=== PATIENT | female | born 1975 | race African-American/Black ===

== ENCOUNTER 2019-09-17 18:21 | Emergency (ER) | payer MEDICAID ==
--- NOTE | 2019-09-17 19:20 | NUR ---
called for triage. no answer
--- NOTE | 2019-09-17 19:27 | NUR ---
CALLED FOR TRIAGE . NO ANSWER
--- NOTE | 2019-09-17 19:30 | NUR ---
patient called for triage. LWBS
== END 2019-09-17 19:20 | disposition left against medical advice (07) ==
LOC: SED 18:21
DX: I10 Essential (primary) hypertension (principal); Z53.21 Procedure and treatment not carried out due to patient leaving prior to being seen by health care provider

== ENCOUNTER 2021-01-24 10:46 | Emergency (ER) | payer MEDICAID ==
[~2021-01-24] VITALS: Ht 157.5 cm; Wt 58.5 kg
[2021-01-24 10:46] VITALS: BP_SYST 132
--- NOTE | 2021-01-24 10:46 | NUR ---
BROUGHT BACK TO BED #7 AND TRIAGED. REPORT GIVEN TO GREGG
--- NOTE | 2021-01-24 10:50 | NUR ---
Pt came to ER for L chest pain, states she had a heart attack November of 2019. Pt is anxious this could be another ME, currently resting in [facility], awaiting MD, EKG completed
--- NOTE | 2021-01-24 11:10 | NUR ---
DR CARBAJAL AT BEDSIDE FOR EVALUATION
[2021-01-24 11:27] LABS: BASOPHILS % (AUTO) 0.7 % (0.0-2.0); EOSINOPHILS # (AUTO) 0.1 K/uL (0.0-0.4); EOSINOPHILS % (AUTO) 1.3 % (0.0-4.0); HEMATOCRIT 36.8 % (36-48); HEMOGLOBIN 12.1 g/dL (12.0-16.0); LYMPHOCYTES % (AUTO) 28.1 % (20.5-51.5); MEAN CORPUSCULAR HEMOGLOBIN 27 pg (27-31); MEAN CORPUSCULAR HGB CONC 33 % (32-36); MEAN CORPUSCULAR VOLUME 83 fL (79.0-98.0); MONOCYTES # (AUTO) 0.5 K/uL (0.0-1.0); MONOCYTES % (AUTO) 7.5 % (1.7-9.3); NEUTROPHILS # (AUTO) 4.4 K/uL (1.8-7.7); NEUTROPHILS % (AUTO) 62.4 % (40.0-70.0); PLATELET COUNT (AUTO) 251 K/uL (130-430); RED BLOOD CELL COUNT(AUTO) 4.45 MIL/uL (4.2-6.2); RED CELL DISTRIBUTION WIDTH 17.8 % (9.0-15.0)
[2021-01-24] MEDS ORDERED: ASPIRIN 81 MG TAB.CHEW PO ONE (11:30)
--- NOTE | 2021-01-24 11:37 | NUR ---
Pt resting in [facility] at this time
[2021-01-24 11:41] LABS: ANION GAP 8 (5-15); CALCIUM 8.7 mg/dL (8.4-11.0); CHLORIDE 105 mmol/L (98-107); CREATININE 0.87 mg/dL (0.55-1.30); GLUCOSE 104 mg/dL (70-99); POTASSIUM 3.2 mmol/L (3.5-5.1); SODIUM SERUM 140 mmol/L (136-145); UREA NITROGEN, BLOOD 15 mg/dL (8-21)
[2021-01-24 11:48] LABS: GFR AFRICAN AMERICAN 91 mL/min (>90)
[2021-01-24 11:50] LABS: ALANINE AMINOTRANSFERASE 16 U/L (12-78); ASPARTATE AMINOTRANSFERASE 17 U/L (10-37); LIPASE 150 U/L (73-393)
--- NOTE | 2021-01-24 12:08 | NUR ---
calm, alert, resp unlabored, skin warm and dry. communicates clearly in full complete sentneces, SR ON MONITOR NO ECTOPY, NORMOTENSIVE
--- NOTE | 2021-01-24 12:40 | NUR ---
Pt sitting upright in [facility] at this time, no complaints
[2021-01-24] MEDS ORDERED: POTASSIUM CHLORIDE 20 MEQ TAB.PRT.SR PO ONE (12:45)
[2021-01-24] MEDS ORDERED: DIAZEPAM 5 MG TABLET (VALIUM) PO ONE (13:00)
[2021-01-24] MEDS ORDERED: DIAZ5TAB PO ×3 (13:07→13:30)
[2021-01-24 13:44] VITALS: BP_SYST 141
--- NOTE | 2021-01-24 13:44 | NUR ---
Patient given written and verbal discharge instructions and verbalizes understanding. ER MD discussed with patient the results and treatment provided. Patient in stable condition. ID arm band removed. IV catheter removed intact and dressing applied, no active bleeding. Rx of Valium given. Patient educated on pain management and to follow up with PMD. Pain Scale 0/10. Opportunity for questions provided and answered. Medication side effect fact sheet provided.
== END 2021-01-24 13:44 | disposition home or self-care (01) ==
LOC: SED 10:46
DX: R07.89 Other chest pain (principal); E87.6 Hypokalemia; I10 Essential (primary) hypertension; Z79.899 Other long term (current) drug therapy
CPT/HCPCS: 36415; 71045; 80053; 83690; 84484; 85025; 93005; 99285

== ENCOUNTER 2021-09-11 12:23 | Emergency (ER) | payer MEDICAID ==
[~2021-09-11] VITALS: Ht 157.5 cm; Wt 59.0 kg
[2021-09-11 12:23] VITALS: BP_SYST 140
[~2021-09-11 12:23] MED LIST: DIAZ5TAB PO
--- NOTE | 2021-09-11 12:23 | NUR ---
BROUGHT BACK TO BED #8 AND TRIAGED. REPORT GIVEN TO LAURA
--- NOTE | 2021-09-11 13:24 | NUR ---
BRADLEY Murcia at bedside examining patient.
[2021-09-11 13:39] VITALS: BP_SYST 144
--- NOTE | 2021-09-11 13:41 | NUR ---
Patient given written and verbal discharge instructions and verbalizes understanding. ER MD discussed with patient the results and treatment provided. Patient in stable condition. ID arm band removed. Patient educated on pain management and to follow up with PMD. Pain Scale 0. Opportunity for questions provided and answered. Medication side effect fact sheet provided.
== END 2021-09-11 13:39 | disposition home or self-care (01) ==
LOC: SED 12:23
DX: I10 Essential (primary) hypertension (principal); Z91.14 Patient's other noncompliance with medication regimen
CPT/HCPCS: 99281

== ENCOUNTER 2021-11-04 06:28 | Emergency (ER) | payer MEDICAID ==
[~2021-11-04] VITALS: Ht 157.5 cm; Wt 59.0 kg
[2021-11-04 06:48] VITALS: BP_SYST 133
[2021-11-04 07:26] LABS: CALCIUM 8.8 mg/dL (8.4-11.0); CREATININE 0.85 mg/dL (0.55-1.30)
[2021-11-04 07:30] LABS: BASOPHILS # (AUTO) 0.1 K/uL (0.0-0.2); EOSINOPHILS # (AUTO) 0.1 K/uL (0.0-0.4); EOSINOPHILS % (AUTO) 1.1 % (0.0-4.0); HEMATOCRIT 34.5 % (36-48); HEMOGLOBIN 11.3 g/dL (12.0-16.0); LYMPHOCYTES # (AUTO) 1.4 K/uL (1.0-5.5); MEAN CORPUSCULAR HEMOGLOBIN 25 pg (27-31); MEAN CORPUSCULAR HGB CONC 33 % (32-36); MEAN CORPUSCULAR VOLUME 77 fL (79.0-98.0); MONOCYTES # (AUTO) 0.4 K/uL (0.0-1.0); MONOCYTES % (AUTO) 6.3 % (1.7-9.3); NEUTROPHILS # (AUTO) 3.8 K/uL (1.8-7.7); NEUTROPHILS % (AUTO) 66.6 % (40.0-70.0); PLATELET COUNT (AUTO) 297 K/uL (130-430); RED BLOOD CELL COUNT(AUTO) 4.45 MIL/uL (4.2-6.2); WHITE BLOOD COUNT (AUTO) 5.7 K/uL (4.8-10.8)
[2021-11-04 07:34] LABS: ALBUMIN 3.7 g/dL (3.4-4.8); TOTAL BILIRUBIN 0.7 mg/dL (0.0-1.0)
[2021-11-04] MEDS ORDERED: IBUPROFEN 800 MG TABLET PO ONE (08:00)
[2021-11-04] MEDS ORDERED: HYDROcodone/ACETAMIN 10-325 MG TAB PO ONE (08:00)
[2021-11-04] MEDS ORDERED: IBUP-1969 PO (08:02)
[2021-11-04] MEDS ORDERED: HYDR-3917 PO (08:02)
[2021-11-04 09:00] VITALS: BP_SYST 118
== END 2021-11-04 09:00 | disposition home or self-care (01) ==
LOC: SED 06:28
DX: G62.9 Polyneuropathy, unspecified (principal); I10 Essential (primary) hypertension
CPT/HCPCS: 36415; 70450-TC; 71045; 76376; 80053; 84484; 85025; 93005; 99285

== ENCOUNTER 2022-12-16 07:20 | Inpatient (IN) | payer MEDICAID ==
[~2022-12-16] VITALS: Ht 157.5 cm; Wt 56.7 kg
[~2022-12-16 07:20] MED LIST changes: +HYDR-3917 PO; +IBUP-1969 PO
[2022-12-16 07:24] VITALS: BP_SYST 107
[2022-12-16] MEDS ORDERED: KETOROLAC TROMETHAMINE 60 MG/2 ML VIAL IM ONE (07:45)
[2022-12-16 07:57] LABS: BILIRUBIN,URINE NEGATIVE (NEGATIVE); BLOOD, URINE NEGATIVE (NEGATIVE); COLOR,URINE YELLOW (YELLOW); GLUCOSE,URINE NEGATIVE (NEGATIVE); KETONES,URINE NEGATIVE (NEGATIVE); LEUKOCYTE ESTERASE ,URINE NEGATIVE (NEGATIVE); NITRITE, URINE NEGATIVE (NEGATIVE); PROTEIN URINE NEGATIVE (NEGATIVE); UROBILINOGEN,URINE 0.2 (0.2-1.0)
[2022-12-16 08:02] LABS: BASOPHILS # (AUTO) 0.1 K/uL (0.0-0.2); EOSINOPHILS # (AUTO) 0.2 K/uL (0.0-0.4); EOSINOPHILS % (AUTO) 1.9 % (0.0-4.0); HEMATOCRIT 36.8 % (36-48); LYMPHOCYTES # (AUTO) 1.9 K/uL (1.0-5.5); MEAN CORPUSCULAR HEMOGLOBIN 27 pg (27-31); MEAN CORPUSCULAR HGB CONC 33 % (32-36); MEAN CORPUSCULAR VOLUME 83 fL (79.0-98.0); MONOCYTES # (AUTO) 0.6 K/uL (0.0-1.0); MONOCYTES % (AUTO) 5.9 % (1.7-9.3); NEUTROPHILS # (AUTO) 7.4 K/uL (1.8-7.7); NEUTROPHILS % (AUTO) 72.2 % (40.0-70.0); PLATELET COUNT (AUTO) 280 K/uL (130-430); RED BLOOD CELL COUNT(AUTO) 4.46 MIL/uL (4.2-6.2); RED CELL DISTRIBUTION WIDTH 19.6 % (9.0-15.0); WHITE BLOOD COUNT (AUTO) 10.2 K/uL (4.8-10.8)
[2022-12-16 08:02] LABS: CLARITY/URINE CLEAR (CLEAR)
[2022-12-16 08:17] LABS: CALCIUM 8.8 mg/dL (8.4-11.0); CREATININE 0.93 mg/dL (0.55-1.30)
[2022-12-16 08:23] LABS: ALBUMIN 3.8 g/dL (3.4-4.8); TOTAL BILIRUBIN 0.7 mg/dL (0.0-1.0)
[2022-12-16] MEDS ORDERED: KCL 20 mEq in D5/0.45NS 1000mL 1,000 ML IV SCH (10:30)
[2022-12-16] MEDS ORDERED: ESCI-6 PO (10:51)
[2022-12-16] MEDS ORDERED: LISI1TAB13 PO (10:51)
[2022-12-16] MEDS ORDERED: ASPI-524 PO (10:51)
[2022-12-16] MEDS ORDERED: METO-542 PO (10:51)
[2022-12-16] MEDS: ONDANSETRON HCL 4 MG/2 ML VIAL IVP PRN ×2 (11:54→16:45)
[2022-12-16] MEDS: HYDROmorphone 1 MG/ML INJ. CARTRIDGE IVP PRN ×3 (11:54→23:21)
[2022-12-16] MEDS: KCL 20 mEq in D5/0.45NS 1000mL 1,000 ML IV SCH ×2 (11:54→21:15)
[2022-12-16 18:24] VITALS: BP_SYST 133
[2022-12-16 21:00] VITALS: BP_SYST 132
[2022-12-16] MEDS ORDERED: NICOTINE 21 MG/24 HR PATCH.TD24 TD ONE (21:00)
[2022-12-16] MEDS: PANTOPRAZOLE SODIUM 40 MG/VIAL (PROTONIX) IVP SCH (21:05)
[2022-12-16] MEDS: ENOXAPARIN SODIUM 40 MG/0.4 ML SYRINGE SUBCUT SCH (21:14)
[2022-12-17 00:37] VITALS: BP_SYST 118
[2022-12-17 05:35] LABS: BASOPHILS % (AUTO) 0.8 % (0.0-2.0); EOSINOPHILS # (AUTO) 0.2 K/uL (0.0-0.4); EOSINOPHILS % (AUTO) 3.2 % (0.0-4.0); HEMATOCRIT 33.9 % (36-48); HEMOGLOBIN 11.2 g/dL (12.0-16.0); LYMPHOCYTES # (AUTO) 2.2 K/uL (1.0-5.5); LYMPHOCYTES % (AUTO) 36.8 % (20.5-51.5); MEAN CORPUSCULAR HEMOGLOBIN 27 pg (27-31); MEAN CORPUSCULAR HGB CONC 33 % (32-36); MEAN CORPUSCULAR VOLUME 82 fL (79.0-98.0); MONOCYTES # (AUTO) 0.6 K/uL (0.0-1.0); MONOCYTES % (AUTO) 9.4 % (1.7-9.3); NEUTROPHILS % (AUTO) 49.8 % (40.0-70.0); PLATELET COUNT (AUTO) 246 K/uL (130-430); RED BLOOD CELL COUNT(AUTO) 4.14 MIL/uL (4.2-6.2); RED CELL DISTRIBUTION WIDTH 18.6 % (9.0-15.0); WHITE BLOOD COUNT (AUTO) 6.1 K/uL (4.8-10.8)
[2022-12-17 05:54] LABS: CALCIUM 7.8 mg/dL (8.4-11.0); CREATININE 0.82 mg/dL (0.55-1.30)
[2022-12-17 08:00] VITALS: BP_SYST 145
[2022-12-17] MEDS: NICOTINE 21 MG/24 HR PATCH.TD24 TD SCH (08:29)
[2022-12-17] MEDS: PANTOPRAZOLE SODIUM 40 MG/VIAL (PROTONIX) IVP SCH ×2 (08:29→22:09)
[2022-12-17] MEDS: KCL 20 mEq in D5/0.45NS 1000mL 1,000 ML IV SCH ×2 (08:29→17:45)
[2022-12-17 11:30] VITALS: BP_SYST 159
[2022-12-17] MEDS: ONDANSETRON HCL 4 MG/2 ML VIAL IVP PRN ×3 (12:14→23:54)
[2022-12-17] MEDS: HYDROmorphone 1 MG/ML INJ. CARTRIDGE IVP PRN ×2 (13:45→18:28)
[2022-12-17 18:18] VITALS: BP_SYST 129
[2022-12-17 20:00] VITALS: BP_SYST 131
[2022-12-17] MEDS: ENOXAPARIN SODIUM 40 MG/0.4 ML SYRINGE SUBCUT SCH (22:09)
[2022-12-17] MEDS: KETOROLAC TROMETHAMINE 15 MG VIAL IVP PRN (23:53)
[2022-12-18 00:45] VITALS: BP_SYST 139
[2022-12-18] MEDS: KCL 20 mEq in D5/0.45NS 1000mL 1,000 ML IV SCH ×2 (05:08→14:52)
[2022-12-18 05:56] LABS: BASOPHILS # (AUTO) 0.1 K/uL (0.0-0.2); BASOPHILS % (AUTO) 0.8 % (0.0-2.0); EOSINOPHILS # (AUTO) 0.2 K/uL (0.0-0.4); EOSINOPHILS % (AUTO) 2.6 % (0.0-4.0); HEMOGLOBIN 11.4 g/dL (12.0-16.0); LYMPHOCYTES # (AUTO) 2.5 K/uL (1.0-5.5); LYMPHOCYTES % (AUTO) 40.1 % (20.5-51.5); MEAN CORPUSCULAR HEMOGLOBIN 27 pg (27-31); MEAN CORPUSCULAR HGB CONC 33 % (32-36); MEAN CORPUSCULAR VOLUME 82 fL (79.0-98.0); MONOCYTES # (AUTO) 0.5 K/uL (0.0-1.0); MONOCYTES % (AUTO) 8.5 % (1.7-9.3); PLATELET COUNT (AUTO) 262 K/uL (130-430); RED BLOOD CELL COUNT(AUTO) 4.26 MIL/uL (4.2-6.2); RED CELL DISTRIBUTION WIDTH 18.7 % (9.0-15.0); WHITE BLOOD COUNT (AUTO) 6.3 K/uL (4.8-10.8)
[2022-12-18 06:29] LABS: ALBUMIN 3.1 g/dL (3.4-4.8); CALCIUM 8.1 mg/dL (8.4-11.0); CREATININE 0.8 mg/dL (0.55-1.30); TOTAL BILIRUBIN 0.9 mg/dL (0.0-1.0)
[2022-12-18 08:18] VITALS: BP_SYST 158
[2022-12-18] MEDS: NICOTINE 21 MG/24 HR PATCH.TD24 TD SCH (08:28)
[2022-12-18] MEDS: PANTOPRAZOLE SODIUM 40 MG/VIAL (PROTONIX) IVP SCH ×2 (08:28→21:28)
[2022-12-18] MEDS: ONDANSETRON HCL 4 MG/2 ML VIAL IVP PRN (08:41)
[2022-12-18] MEDS: KETOROLAC TROMETHAMINE 15 MG VIAL IVP PRN ×2 (08:41→17:25)
[2022-12-18 11:05] VITALS: BP_SYST 140
[2022-12-18] MEDS ORDERED: INSULIN NPH 100 UNITS/ML 10 ML VIAL SUBCUT ONE (12:30)
[2022-12-18] MEDS ORDERED: MORPHINE 2 MG/ML INJ. SYRINGE IVP ONE ×2 (13:15→22:30)
[2022-12-18 15:43] VITALS: BP_SYST 141
[2022-12-18] MEDS ORDERED: INSULIN Lispro 100 UNITS/ML, 3 ML VIAL (humaLOG) SUBCUT SCH (17:00)
[2022-12-18 20:00] VITALS: BP_SYST 160
[2022-12-18] MEDS: ENOXAPARIN SODIUM 40 MG/0.4 ML SYRINGE SUBCUT SCH (21:29)
[2022-12-18] MEDS: LOSARTAN POTASSIUM 50 MG TABLET (COZAAR) PO SCH (23:00)
[2022-12-19 00:35] VITALS: BP_SYST 138
[2022-12-19] MEDS: KCL 20 mEq in D5/0.45NS 1000mL 1,000 ML IV SCH (03:19)
[2022-12-19 08:00] VITALS: BP_SYST 131
[2022-12-19] MEDS: PANTOPRAZOLE SODIUM 40 MG/VIAL (PROTONIX) IVP SCH (09:40)
[2022-12-19] MEDS: NICOTINE 21 MG/24 HR PATCH.TD24 TD SCH (09:41)
[2022-12-19] MEDS: LOSARTAN POTASSIUM 50 MG TABLET (COZAAR) PO SCH (09:41)
[2022-12-19 12:00] VITALS: BP_SYST 140
[2022-12-19 15:51] VITALS: BP_SYST 140
[2022-12-19] MEDS ORDERED: LOSA-417 PO (16:00)
[2022-12-19] MEDS ORDERED: PRO40 PO (16:01)
[2022-12-19] MEDS ORDERED: ONDA-8 TL (16:02)
[2022-12-20 15:07] LABS: ANTI NUCLEAR AB WITH REFLEX Negative (Negative)
== END 2022-12-19 16:20 | disposition home or self-care (01) | DRG 282 ==
LOC: SED 07:20 → SMU 09:59 → STU 10:03 → SMU 15:24 → STU 15:25 → SMU 16:18
PROVIDERS: ADMIT Family Medicine; ATTEND Family Medicine
DX: K85.90 Acute pancreatitis without necrosis or infection, unspecified (principal); E78.5 Hyperlipidemia, unspecified; F17.210 Nicotine dependence, cigarettes, uncomplicated; Z20.822 Contact with and (suspected) exposure to COVID-19; I10 Essential (primary) hypertension; M54.9 Dorsalgia, unspecified; K29.70 Gastritis, unspecified, without bleeding; Z79.1 Long term (current) use of non-steroidal anti-inflammatories (NSAID); Z79.899 Other long term (current) drug therapy; Z79.891 Long term (current) use of opiate analgesic
CPT/HCPCS: 36415; 76376; 76705; 80048; 80053; 81003; 82150; 82787; 83690; 83735; 85025; 86038; 96374; 99285; C9113; J1170; J1650; J1885; J2270; J2405

== ENCOUNTER 2023-02-26 02:49 | Emergency (ER) | payer MEDICAID ==
[~2023-02-26] VITALS: Ht 157.5 cm; Wt 56.7 kg
[~2023-02-26 02:49] MED LIST changes: +ESCI-6 PO; -IBUP-1969 PO; +LOSA-417 PO; +ONDA-8 TL; +PRO40 PO
[2023-02-26 03:05] VITALS: BP_SYST 147
[2023-02-26] MEDS ORDERED: ENALAPRILAT DIHYDRATE 1.25 MG/ML VIAL IVP ONE (03:15)
[2023-02-26] MEDS ORDERED: MORPHINE 4 MG INJ. 4 MG/ML VIAL IVP ONE (04:15)
[2023-02-26] MEDS ORDERED: hydrALAZINE HCL 20 MG/ML VIAL IVP ONE (05:30)
[2023-02-26] MEDS ORDERED: AMLO2.5T2 PO (05:40)
[2023-02-26 06:25] VITALS: BP_SYST 128
== END 2023-02-26 06:25 | disposition home or self-care (01) ==
LOC: SED 02:49
DX: I10 Essential (primary) hypertension (principal); R42 Dizziness and giddiness; R51.9 Headache, unspecified; Z79.899 Other long term (current) drug therapy
CPT/HCPCS: 99284; 96374; 96375; J0360; J2270

== ENCOUNTER 2023-05-16 02:45 | Emergency (ER) | payer MEDICAID ==
[~2023-05-16] VITALS: Ht 157.5 cm; Wt 56.7 kg
[~2023-05-16 02:45] MED LIST changes: +AMLO2.5T2 PO
[2023-05-16 03:06] VITALS: BP_SYST 143; PULSE 68; RESP 16; TEMP 97.7; O2SAT 100
[2023-05-16 03:41] LABS: BASOPHILS # (AUTO) 0.1 K/uL (0.0-0.2); BASOPHILS % (AUTO) 1.2 % (0.0-2.0); EOSINOPHILS # (AUTO) 0.2 K/uL (0.0-0.4); EOSINOPHILS % (AUTO) 2.4 % (0.0-4.0); HEMATOCRIT 32.5 % (36-48); HEMOGLOBIN 10.4 g/dL (12.0-16.0); LYMPHOCYTES # (AUTO) 1.9 K/uL (1.0-5.5); LYMPHOCYTES % (AUTO) 24.8 % (20.5-51.5); MEAN CORPUSCULAR HEMOGLOBIN 25 pg (27-31); MEAN CORPUSCULAR HGB CONC 32 % (32-36); MEAN CORPUSCULAR VOLUME 79 fL (79.0-98.0); MONOCYTES # (AUTO) 0.5 K/uL (0.0-1.0); MONOCYTES % (AUTO) 6.9 % (1.7-9.3); NEUTROPHILS % (AUTO) 64.7 % (40.0-70.0); PLATELET COUNT (AUTO) 276 K/uL (130-430); RED BLOOD CELL COUNT(AUTO) 4.11 MIL/uL (4.2-6.2); RED CELL DISTRIBUTION WIDTH 16.9 % (9.0-15.0); WHITE BLOOD COUNT (AUTO) 7.7 K/uL (4.8-10.8)
[2023-05-16 04:05] LABS: CALCIUM 8.4 mg/dL (8.4-11.0); CREATININE 0.86 mg/dL (0.55-1.30)
[2023-05-16 04:10] LABS: ALBUMIN 3.7 g/dL (3.4-4.8); TOTAL BILIRUBIN 1.4 mg/dL (0.0-1.0); TOTAL PROTEIN, SERUM 7.2 g/dL (6.4-8.3)
[2023-05-16] MEDS ORDERED: KETOROLAC TROMETHAMINE 30 MG VIAL IM ONE (04:15)
[2023-05-16] MEDS ORDERED: methocarbamoL 500 MG TABLET PO ONE (04:15)
[2023-05-16] MEDS ORDERED: LIDOCAINE PATCH 5% 1 EA TP ONE (04:15)
[2023-05-16 04:56] LABS: BILIRUBIN,URINE NEGATIVE (NEGATIVE); BLOOD, URINE TRACE (NEGATIVE); CLARITY/URINE SLIGHTLY CLOUDY (CLEAR); COLOR,URINE YELLOW (YELLOW); GLUCOSE,URINE NEGATIVE (NEGATIVE); KETONES,URINE TRACE (NEGATIVE); PH,URINE 5.5 (5.0-8.0); PROTEIN URINE NEGATIVE (NEGATIVE)
[2023-05-16 04:57] LABS: LEUKOCYTE ESTERASE ,URINE NEGATIVE (NEGATIVE); NITRITE, URINE NEGATIVE (NEGATIVE); UROBILINOGEN,URINE 0.2 (0.2-1.0)
[2023-05-16 04:58] LABS: BACTERIA,URINE RARE /HPF (None Seen); RBC,URINE 0-3 /HPF (0-3); WBC,URINE 0-3 /HPF (0-3)
[2023-05-16] MEDS ORDERED: NAPR-690 PO (07:39)
[2023-05-16 10:50] VITALS: BP_SYST 143; PULSE 68; RESP 16; TEMP 97.7; O2SAT 100
== END 2023-05-16 07:53 | disposition home or self-care (01) ==
LOC: SED 02:45
DX: R10.32 Left lower quadrant pain (principal); R10.12 Left upper quadrant pain; M25.552 Pain in left hip; M79.662 Pain in left lower leg; R11.2 Nausea with vomiting, unspecified; I10 Essential (primary) hypertension; Z79.899 Other long term (current) drug therapy
CPT/HCPCS: 99285; 93971; 80053; 81000; 83690; 85025; 36415; 72170; 81025; 96372; J1885

== ENCOUNTER 2024-03-30 10:35 | Emergency (ER) | payer MEDICAID ==
[~2024-03-30] VITALS: Ht 157.5 cm; Wt 57.6 kg
[~2024-03-30 10:35] MED LIST changes: +NAPR-690 PO; +NICO-736 TP
[2024-03-30 10:44] VITALS: BP_SYST 127; PULSE 100; RESP 18; TEMP 98.2; O2SAT 100
[2024-03-30 11:20] LABS: BASOPHILS % (AUTO) 0.4 % (0.0-2.0); EOSINOPHILS # (AUTO) 0.1 K/uL (0.0-0.4); EOSINOPHILS % (AUTO) 1.2 % (0.0-4.0); HEMATOCRIT 32.6 % (36-48); HEMOGLOBIN 10.4 g/dL (12.0-16.0); LYMPHOCYTES % (AUTO) 20.2 % (20.5-51.5); MEAN CORPUSCULAR HEMOGLOBIN 25 pg (27-31); MEAN CORPUSCULAR HGB CONC 32 % (32-36); MEAN CORPUSCULAR VOLUME 77 fL (79.0-98.0); MONOCYTES # (AUTO) 0.5 K/uL (0.0-1.0); MONOCYTES % (AUTO) 5.3 % (1.7-9.3); NEUTROPHILS # (AUTO) 7.1 K/uL (1.8-7.7); NEUTROPHILS % (AUTO) 72.9 % (40.0-70.0); PLATELET COUNT (AUTO) 283 K/uL (130-430); RED BLOOD CELL COUNT(AUTO) 4.25 MIL/uL (4.2-6.2); RED CELL DISTRIBUTION WIDTH 18.6 % (9.0-15.0); WHITE BLOOD COUNT (AUTO) 9.7 K/uL (4.8-10.8)
[2024-03-30 11:43] LABS: ALBUMIN 3.7 g/dL (3.4-4.8); BILIRUBIN,DIRECT 0.2 mg/dL (0.0-0.3); CALCIUM 8.8 mg/dL (8.4-11.0); CREATININE 0.79 mg/dL (0.55-1.30); POTASSIUM 3.3 mmol/L (3.5-5.1); TOTAL PROTEIN, SERUM 7.6 g/dL (6.4-8.3)
[2024-03-30] MEDS: PANTOPRAZOLE SODIUM 40 MG TAB PO ONE (12:02)
[2024-03-30] MEDS ORDERED: PRO40 PO (12:03)
[2024-03-30 12:26] VITALS: BP_SYST 112; PULSE 63; RESP 20; TEMP 98.2; O2SAT 100
== END 2024-03-30 12:28 | disposition home or self-care (01) ==
LOC: SED 10:35
DX: K29.00 Acute gastritis without bleeding (principal); R20.8 Other disturbances of skin sensation; I10 Essential (primary) hypertension; I25.2 Old myocardial infarction; F41.9 Anxiety disorder, unspecified; Z79.899 Other long term (current) drug therapy; Z79.2 Long term (current) use of antibiotics
CPT/HCPCS: 36415; 80048; 80076; 83690; 85025; 99283

== ENCOUNTER 2024-04-20 19:37 | Emergency (ER) | payer MEDICAID ==
[~2024-04-20] VITALS: Ht 157.5 cm; Wt 55.3 kg
[~2024-04-20 19:37] MED LIST changes: -DIAZ5TAB PO; -ESCI-6 PO; -HYDR-3917 PO; +METH-776 PO; -NAPR-690 PO; -NICO-736 TP; -ONDA-8 TL
[2024-04-20 19:42] VITALS: BP_SYST 105; PULSE 76; RESP 17; TEMP 97.9; O2SAT 98
[2024-04-20 20:38] LABS: BASOPHILS # (AUTO) 0.1 K/uL (0.0-0.2); BASOPHILS % (AUTO) 0.6 % (0.0-2.0); EOSINOPHILS # (AUTO) 0.1 K/uL (0.0-0.4); EOSINOPHILS % (AUTO) 0.9 % (0.0-4.0); HEMATOCRIT 32.2 % (36-48); HEMOGLOBIN 10.7 g/dL (12.0-16.0); LYMPHOCYTES % (AUTO) 30.9 % (20.5-51.5); MEAN CORPUSCULAR HEMOGLOBIN 25 pg (27-31); MEAN CORPUSCULAR HGB CONC 33 % (32-36); MEAN CORPUSCULAR VOLUME 76 fL (79.0-98.0); MONOCYTES # (AUTO) 1.2 K/uL (0.0-1.0); MONOCYTES % (AUTO) 12.5 % (1.7-9.3); NEUTROPHILS # (AUTO) 5.3 K/uL (1.8-7.7); NEUTROPHILS % (AUTO) 55.1 % (40.0-70.0); PLATELET COUNT (AUTO) 277 K/uL (130-430); RED BLOOD CELL COUNT(AUTO) 4.24 MIL/uL (4.2-6.2); RED CELL DISTRIBUTION WIDTH 18.5 % (9.0-15.0); WHITE BLOOD COUNT (AUTO) 9.7 K/uL (4.8-10.8)
[2024-04-20 20:44] LABS: BILIRUBIN,URINE NEGATIVE (NEGATIVE); BLOOD, URINE 3+ (NEGATIVE); COLOR,URINE YELLOW (YELLOW); GLUCOSE,URINE NEGATIVE (NEGATIVE); KETONES,URINE NEGATIVE (NEGATIVE); LEUKOCYTE ESTERASE ,URINE NEGATIVE (NEGATIVE); NITRITE, URINE NEGATIVE (NEGATIVE); PROTEIN URINE NEGATIVE (NEGATIVE); UROBILINOGEN,URINE 0.2 (0.2-1.0)
[2024-04-20 20:47] LABS: CLARITY/URINE CLOUDY (CLEAR)
[2024-04-20 20:57] LABS: BACTERIA,URINE FEW /HPF (None Seen); WBC,URINE 0-3 /HPF (0-3)
[2024-04-20 21:00] LABS: ALANINE AMINOTRANSFERASE 25 U/L (12-78); ALBUMIN 3.3 g/dL (3.4-4.8); ANION GAP 9 (5-15); ASPARTATE AMINOTRANSFERASE 15 U/L (10-37); BILIRUBIN,DIRECT 0.1 mg/dL (0.0-0.3); CALCIUM 8.5 mg/dL (8.4-11.0); CARBON DIOXIDE 28 mmol/L (23-29); CHLORIDE 99 mmol/L (98-107); CREATINE KINASE, TOTAL 38 U/L (26-192); CREATININE 0.76 mg/dL (0.55-1.30); GFR AFRICAN AMERICAN 105 mL/min (>90); GLUCOSE 104 mg/dL (74-106); POTASSIUM 3.1 mmol/L (3.5-5.1); SODIUM SERUM 136 mmol/L (136-145); THYROID STIMULATING HORMONE 0.94 uIu/mL (0.36-3.74); TOTAL BILIRUBIN 0.6 mg/dL (0.0-1.0); UREA NITROGEN, BLOOD 13 mg/dL (8-21)
[2024-04-20 21:03] LABS: GFR NON AFRICAN-AMERICAN 87 mL/min (>90); PROTHROMBIN TIME 10.7 SECS (9.5-12.5)
[2024-04-20] MEDS: NACL 0.9% 1,000 ML IV ONE (21:41)
[2024-04-20 22:04] VITALS: BP_SYST 124; PULSE 82; RESP 19; TEMP 98.4; O2SAT 98
== END 2024-04-20 20:04 | disposition home or self-care (01) ==
LOC: SED 19:37
DX: R53.1 Weakness (principal); R68.2 Dry mouth, unspecified; J45.909 Unspecified asthma, uncomplicated; I10 Essential (primary) hypertension; I25.2 Old myocardial infarction; F41.9 Anxiety disorder, unspecified; Z79.899 Other long term (current) drug therapy; Z79.2 Long term (current) use of antibiotics
CPT/HCPCS: 36415; 71045; 80048; 80076; 81000; 81001; 81015; 82550; 83605; 84439; 84443; 84484; 85025; 85610; 85730; 93005; 99285